=== PATIENT | female | born 1985 | race Caucasian/White ===

== ENCOUNTER 2021-09-07 15:45 | Outpatient (RCR) | payer OTHER, SELFPAY | END 2021-09-08 10:44 | disposition home or self-care (01) | PROVIDERS: Visit Provider Family Medicine | DX: M25.571 Pain in right ankle and joints of right foot (principal); R26.9 Unspecified abnormalities of gait and mobility; Z51.89 Encounter for other specified aftercare | CPT/HCPCS: 97535 ==